=== PATIENT | male | born 1980 | race Caucasian/White ===

== ENCOUNTER 2024-04-21 01:42 | Emergency (ER) | payer OTHER ==
[2024-04-21] MEDS: SODIUM CHLORIDE 0.9% 1,000 ML IV ONE (02:42)
[2024-04-21 02:50] LABS: Basophils % (A) 0 %; Eosinophils % (A) 1 %; HCT 38.4 % (39.0-53.0); HGB 12.9 gm/dL (13.0-17.5); Lymphocytes # (A) 1.7 k/uL (1.0-4.8); Lymphocytes % (A) 37 %; MCHC 33.6 g/dL (31.0-37.0); MCV 107.2 fL (80.0-100.0); Macrocytosis Moderate; Mean Platelet Volume 9.1; Monocytes # (A) 0.2 k/uL (0-1.0); Monocytes % (A) 5 %; Neutrophils # (A) 2.7 k/uL (1.3-7.7); Neutrophils % (A) 57 %; RBC 3.58 m/uL (4.30-5.90); RDW 13.7 % (11.5-15.5); WBC 4.8 k/uL (3.8-10.6)
[2024-04-21 02:55] LABS: Platelet Count 85 k/uL (150-450)
--- NOTE | 2024-04-21 03:15 | ED ---
General Adult HPI - General Chief complaint: Alcohol Stated complaint: detox Time Seen by Provider: 04/21/24 01:47 Source: EMS Mode of arrival: EMS - History of Present Illness Initial comments: 43-year-old male presents to the emergency department from [facility]. Patient has been at their facility for 3 days. He previously drank up to 3 fifths of vodka a day. He was at [facility] when he had an acute episode of tremors, headache, dizziness with standing and elevated heart rate. [facility] was concerned with withdrawal and thought that the patient needed to be evaluated in the emergency department. Patient arrives calm, cooperative with no shakes. He has not had any alcohol in 5 days. Vital signs have markedly improved without any treatment. He has not administered anything from EMS. Patient reports that he was "worked up" over at the other facility and he feels fine at this time. He does admit that he has been having some hallucinations however this was yesterday and those are now improved. He denies chest pain or difficulty breathing. No nausea or vomiting. No other alleviating, precipitating or modifying factors - Related Data Allergies Allergy/AdvReac Type Severity Reaction Status Date / Time No Known Allergies Allergy Verified 04/21/24 02:28 Review of Systems ROS Statement: Those systems with pertinent positive or pertinent negative responses have been documented in the HPI. ROS Other: All systems not noted in ROS Statement are negative. General Exam General appearance: alert, in no apparent distress Head exam: Present: atraumatic, normocephalic, normal inspection Eye exam: Present: normal appearance, PERRL, EOMI. Absent: scleral icterus, conjunctival injection, periorbital swelling ENT exam: Present: normal exam, mucous membranes moist Neck exam: Present: normal inspection. Absent: tenderness, meningismus, lymphadenopathy Respiratory exam: Present: normal lung sounds bilaterally. Absent: respiratory distress, wheezes, rales, rhonchi, stridor Cardiovascular Exam: Present: regular rate, normal rhythm, normal heart sounds. Absent: systolic murmur, diastolic murmur, rubs, gallop, clicks GI/Abdominal exam: Present: soft, normal bowel sounds. Absent: distended, tenderness, guarding, rebound, rigid Extremities exam: Present: normal inspection, full ROM, normal capillary refill. Absent: tenderness, pedal edema, joint swelling, calf tenderness Back exam: Present: normal inspection Neurological exam: Present: alert, oriented X3, CN II-XII intact Psychiatric exam: Present: normal affect, normal mood Skin exam: Present: warm, dry, intact, normal color. Absent: rash Course Vital Signs 04/21/24 04/21/24 04/21/24 02:11 05:32 06:41 Temperature 98.6 F 98.3 F Pulse Rate 99 81 77 Respiratory 16 18 18 Rate Blood Pressure 141/92 124/91 113/90 O2 Sat by Pulse 97 98 100 Oximetry 04/21/24 04/21/24 07:51 08:51 Temperature 98.0 F 98.2 F Pulse Rate 71 71 Respiratory 16 18 Rate Blood Pressure 117/91 133/96 O2 Sat by Pulse 98 99 Oximetry Medical Decision Making - Medical Decision Making Was pt. sent in by a medical professional or institution (, PA, SHANK THREADER, urgent care, hospital, or alf...) When possible be specific @ -Patient was sent from [facility] Did you speak to anyone other than the patient for history (EMS, parent, family, police, friend...)? What history was obtained from this source @ -Spoke with EMS for history Did you review nursing and triage notes (agree or disagree)? Why? @ -I reviewed and agree with nursing and triage notes Were old charts reviewed (outside hosp., previous admission, EMS record, old EKG, old radiological studies, urgent care reports/EKG's, alf records)? Report findings @ -I reviewed the paperwork from [facility] Differential Diagnosis (chest pain, altered mental status, abdominal pain women, abdominal pain men, vaginal bleeding, weakness, fever, dyspnea, syncope, headache, dizziness, GI bleed, back pain, seizure, CVA, palpatations, mental health, musculoskeletal)? @ -Delirium tremens, alcohol intoxication, alcohol withdrawal, VA EKG interpreted by me (3pts min.). @ -yes and demonstrates sinus rhythm with a rate of 91. SD interval 144. QRS 92. QTc of 407. No acute ST segment inflations depressions X-rays interpreted by me (1pt min.). @ -None done CT interpreted by me (1pt min.). @ -None done U/S interpreted by me (1pt. min.). @ -None done What testing was considered but not performed or refused? (CT, X-rays, U/S, labs)? Why? @ -None What meds were considered but not given or refused? Why? @ -None Did you discuss the management of the patient with other professionals (professionals i.e. , PA, SHANK THREADER, lab, RT, psych nurse, social media content specialist, wet pan operator, teacher, collection officer, egg caser)? Give summary @ -No Was smoking cessation discussed for >3mins.? @ -No Was critical care preformed (if so, how long)? @ -No Were there social determinants of health that impacted care today? How? (Homelessness, low income, unemployed, alcoholism, drug addiction, transportation, low edu. Level, literacy, decrease access to med. care, detention, rehab)? @ -Patient is currently in rehab Was there de-escalation of care discussed even if they declined (Discuss DNR or withdrawal of care, Hospice)? DNR status @ -No What co-morbidities impacted this encounter? (DM, HTN, Smoking, COPD, CAD, Cancer, CVA, ARF, Chemo, Hep., AIDS, mental health diagnosis, sleep apnea, morbid obesity)? @ -Alcohol abuse Was patient admitted / discharged? Hospital course, mention meds given and route, prescriptions, significant lab abnormalities, going to OR and other pertinent info. @ -Upon arrival patient seen and evaluated in bed 12. Thorough history and physical exam was performed. IV was established. Patient was given a dose of Ativan. Laboratory studies are conducted. Patient is watched for several hours in the emergency department and he has a low CIWA score. Patient has no unstable vital signs, no tremor. I feel the patient is adequate to go back to the rehab facility and does not require hospitalization. We did call [facility] to let them know that the patient will be transferred back. Patient felt comfortable going back. He was discharged in stable condition back to the rehab facility Undiagnosed new problem with uncertain prognosis? @ -No Drug Therapy requiring intensive monitoring for toxicity (Heparin, Nitro, Insulin, Cardizem)? @ -No Were any procedures done? @ -No Diagnosis/symptom? @ -Acute tachycardia, accelerated hypertension, alcohol withdrawal, history of alcohol dependence Acute, or Chronic, or Acute on Chronic? @ -Acute Uncomplicated (without systemic symptoms) or Complicated (systemic symptoms)? @ -Complicated Side effects of treatment? @ -No Exacerbation, Progression, or Severe Exacerbation? @ -No Poses a threat to life or bodily function? How? (Chest pain, USA, VA, pneumonia, PE, COPD, DKA, ARF, appy, cholecystitis, CVA, Diverticulitis, Homicidal, Suicidal, threat to staff... and all critical care pts) @ -No - Lab Data Result diagrams: 04/21/24 02:33 04/21/24 02:33 Lab Results 04/21/24 04/21/24 04/21/24 Range/Units 02:33 02: 02:33 WBC 4.8 (3.8-10.6) k/uL RBC 3.58 L (4.30-5.90) m/uL Hgb 12.9 L (13.0-17.5) gm/dL Hct 38.4 L (39.0-53.0) % MCV 107.2 H (80.0-100.0) fL MCH 36.0 H (25.0-35.0) pg MCHC 33.6 (31.0-37.0) g/dL RDW 13.7 (11.5-15.5) % Plt Count 85 L (150-450) k/uL MPV 9.1 Neutrophils % 57 % Lymphocytes % 37 % Monocytes % 5 % Eosinophils % 1 % Basophils % 0 % Neutrophils # 2.7 (1.3-7.7) k/uL Lymphocytes # 1.7 (1.0-4.8) k/uL Monocytes # 0.2 (0-1.0) k/uL Eosinophils # 0.0 (0-0.7) k/uL Basophils # 0.0 (0-0.2) k/uL Macrocytosis Moderate Sodium 133 L (137-145) mmol/L Potassium 4.7 (3.5-5.1) mmol/L Chloride 95 L (98-107) mmol/L Carbon Dioxide 26 (22-30) mmol/L Anion Gap 12 mmol/L BUN 15 (9-20) mg/dL Creatinine 0.53 L (0.66-1.25) mg/dL Est GFR (CKD-EPI)AfAm >90 (>60 ml/min/1.73 sqM) Est GFR (CKD-EPI)NonAf >90 (>60 ml/min/1.73 sqM) Glucose 102 H (74-99) mg/dL Plasma Lactic Acid Russell 1.2 (0.7-2.0) mmol/L Calcium 10.2 (8.4-10.2) mg/dL Magnesium 1.1 L (1.6-2.3) mg/dL Total Bilirubin 1.5 H (0.2-1.3) mg/dL AST 247 H (17-59) U/L ALT 83 H (4-49) U/L Alkaline Phosphatase 62 (38-126) U/L Total Protein 7.9 (6.3-8.2) g/dL Albumin 4.6 (3.5-5.0) g/dL Disposition Clinical Impression: Hypomagnesemia, Alcohol withdrawal Disposition: HOME SELF-CARE Condition: Stable Instructions (If sedation given, give patient instructions): Alcohol Withdrawal (ED) Additional Instructions: You have been given magnesium. You will be discharged back to [facility] at this time Is patient prescribed a controlled substance at d/c from ED?: No Referrals: None,Stated [Primary Care Provider] - 1-2 days Time of Disposition: 03:58
[2024-04-21 03:20] LABS: ALT 83 U/L (4-49); African American GFR (CKD) >90 (>60 ml/min/1.73 sqM); Albumin 4.6 g/dL (3.5-5.0); Anion Gap 12 mmol/L; Blood Urea Nitrogen 15 mg/dL (9-20); Calcium 10.2 mg/dL (8.4-10.2); Carbon Dioxide 26 mmol/L (22-30); Chloride 95 mmol/L (98-107); Glucose 102 mg/dL (74-99); Non-African American GFR(CKD) >90 (>60 ml/min/1.73 sqM); Sodium 133 mmol/L (137-145); Total Bilirubin 1.5 mg/dL (0.2-1.3); Total Protein 7.9 g/dL (6.3-8.2)
[2024-04-21 03:25] LABS: AST 247 U/L (17-59); Alkaline Phosphatase 62 U/L (38-126); Magnesium 1.1 mg/dL (1.6-2.3); Potassium 4.7 mmol/L (3.5-5.1)
[2024-04-21] MEDS: MAGNESIUM SULFATE-D5W PMX 1 GM in DEXTROSE/WATER 1 100ML.BAG IVPB SCH (04:23)
[2024-04-21 07:51] VITALS: PULSE 71
[2024-04-21 08:51] VITALS: BP 133/96; RESP 18; TEMP 98.2
== END 2024-04-21 09:01 | disposition home or self-care (01) ==
LOC: EC 01:42
DX: E83.42 Hypomagnesemia (principal); F10.939 Alcohol use, unspecified with withdrawal, unspecified
CPT/HCPCS: 36415; 93005; 80053; 83605; 83735; 85025; 99285; 96365; 96366; 96361; J3475